=== PATIENT | male | born 1985 | race American Indian/Alaskan Native ===

== ENCOUNTER 2016-08-16 23:15 | Observation (INO) | payer MEDICAID ==
[2016-08-16] MEDS ORDERED: LORazepam 2 MG/ML Syringe IVPUSH ONE (23:20)
[2016-08-16] MEDS ORDERED: Sodium Chloride 0.9% 1,000 ML IV SCH (23:30)
--- NOTE | 2016-08-16 23:32 | EDM.PDOC ---
ED HPI GENERAL MEDICAL PROBLEM - General Chief Complaint: General Stated Complaint: AMB Time Seen by Provider: 08/16/16 23:21 Source of Information: Reports: Patient, EMS History Limitations: Reports: Altered mental status - History of Present Illness INITIAL COMMENTS - FREE TEXT/NARRATIVE: 30 yo [place] Male with altered mental status brought to ED by ambulance. Pt. very agitated but alert Onset: sudden Onset Date: 08/16/16 Onset Time: 18:00 Duration: Hour(s): Location: Reports: generalized Severity: moderate - Related Data Allergies Allergy/AdvReac Type Severity Reaction Status Date / Time No Known Allergies Allergy Verified 08/16/16 23:32 Home Meds: Home Meds . [No Known Home Meds] 08/16/16 [History] ED ROS GENERAL - Review of Systems Review Of Systems: See Below Constitutional: Reports: no symptoms HEENT: Reports: No symptoms Respiratory: Reports: no symptoms Cardiovascular: Reports: No symptoms Endocrine: Reports: no symptoms GI/Abdominal: Reports: No symptoms : Reports: no symptoms Musculoskeletal: Reports: no symptoms Skin: Reports: no symptoms Neurological: Reports: no symptoms Psychiatric: Reports: Agitation, Anxiety Hematologic/Lymphatic: Reports: no symptoms Immunologic: Reports: no symptoms ED EXAM, GENERAL - Physical Exam Exam: See Below Exam Limited By: No limitations General Appearance: alert, anxious Eye Exam: bilateral eye: PERRL Ears: normal external exam Nose: normal inspection Throat/Mouth: Normal inspection, Normal lips Head: atraumatic, normocephalic Neck: normal inspection, supple Respiratory/Chest: no respiratory distress, lungs clear Cardiovascular: normal peripheral pulses, regular rate, rhythm GI/Abdominal: normal bowel sounds, soft Back Exam: normal inspection, full range of motion Extremities: normal inspection, normal range of motion, non-tender Neurological: alert, oriented Psychiatric: anxious Skin Exam: Warm, Dry, Intact Lymphatic: no adenopathy Course - Vital Signs Last Recorded V/S: Last Vital Signs Temp 36.6 C 08/17/16 00:49 Pulse 110 H 08/17/16 00:49 Resp 26 H 08/17/16 00:49 BP 116/53 L 08/17/16 00:49 Pulse Ox 97 08/17/16 00:49 - Orders/Labs/Meds Orders: Active Orders 24 hr Category Date Time Status EKG Documentation Completion [RC] STAT Care 08/16/16 23:20 Active Sodium Chloride 0.9% [Normal Saline] 1,000 ml Med 08/16/16 23:30 Active IV ASDIRECTED Medication Orders Sodium Chloride (Normal Saline) 1,000 mls @ 150 mls/hr IV ASDIRECTED JIM Last Admin: 08/17/16 00:26 Dose: 150 mls/hr Labs: Laboratory Tests 08/16/16 08/16/16 08/16/16 Range/Units 23:33 23:33 23:33 WBC 17.3 H (5.0-10.0) 10^3/uL RBC 4.33 L (4.6-6.2) 10^6/uL Hgb 13.1 L (14.0-18.0) g/dL Hct 37.7 L (40.0-54.0) % MCV 87.1 (80-100) fL MCH 30.3 (27.0-34.0) pg MCHC 34.7 (33.0-35.0) g/dL Plt Count 270 (150-450) 10^3/uL Neut % (Auto) 63.6 (42.2-75.2) % Lymph % (Auto) 18.7 L (20.5-50.1) % [place] % (Auto) 13.9 H (2-8) % Eos % (Auto) 3.6 H (1.0-3.0) % Baso % (Auto) 0.2 (0.0-1.0) % Sodium 135 (135-145) mmol/L Potassium 4.0 (3.6-5.0) mmol/L Chloride 99 L (101-111) mmol/L Carbon Dioxide 24.0 (21.0-31.0) mmol/L Anion Gap 16.0 BUN 25 H (7-18) mg/dL Creatinine 1.2 (0.6-1.3) mg/dL Est Cr Clr Drug Dosing 74.69 mL/min Estimated GFR (MDRD) > 60 BUN/Creatinine Ratio 20.83 Glucose 62 L (74-105) mg/dL Calcium 9.0 (8.4-10.2) mg/dl Total Bilirubin 1.0 (0.2-1.0) mg/dL AST 91 H (10-42) IU/L ALT 63 H (10-60) IU/L Alkaline Phosphatase 74 (42-121) IU/L Troponin I < 0.02 (0.00-0.02) ng/ml Total Protein 7.3 (6.7-8.2) g/dl Albumin 4.3 (3.2-5.5) g/dl Globulin 3.0 Albumin/Globulin Ratio 1.43 Urine Opiates Screen (NEGATIVE) Ur Oxycodone Screen (NEGATIVE) Urine Methadone Screen (NEGATIVE) Ur Barbiturates Screen (NEGATIVE) U Tricyclic Antidepress (NEGATIVE) Ur Phencyclidine Scrn (NEGATIVE) Ur Amphetamine Screen (NEGATIVE) U Methamphetamines Scrn (NEGATIVE) Urine MDMA Screen (NEGATIVE) U Benzodiazepines Scrn (NEGATIVE) Urine Cocaine Screen (NEGATIVE) U Marijuana (THC) Screen (NEGATIVE) 08/17/16 Range/Units 00:20 WBC (5.0-10.0) 10^3/uL RBC (4.6-6.2) 10^6/uL Hgb (14.0-18.0) g/dL Hct (40.0-54.0) % MCV (80-100) fL MCH (27.0-34.0) pg MCHC (33.0-35.0) g/dL Plt Count (150-450) 10^3/uL Neut % (Auto) (42.2-75.2) % Lymph % (Auto) (20.5-50.1) % [place] % (Auto) (2-8) % Eos % (Auto) (1.0-3.0) % Baso % (Auto) (0.0-1.0) % Sodium (135-145) mmol/L Potassium (3.6-5.0) mmol/L Chloride (101-111) mmol/L Carbon Dioxide (21.0-31.0) mmol/L Anion Gap BUN (7-18) mg/dL Creatinine (0.6-1.3) mg/dL Est Cr Clr Drug Dosing mL/min Estimated GFR (MDRD) BUN/Creatinine Ratio Glucose (74-105) mg/dL Calcium (8.4-10.2) mg/dl Total Bilirubin (0.2-1.0) mg/dL AST (10-42) IU/L ALT (10-60) IU/L Alkaline Phosphatase (42-121) IU/L Troponin I (0.00-0.02) ng/ml Total Protein (6.7-8.2) g/dl Albumin (3.2-5.5) g/dl Globulin Albumin/Globulin Ratio Urine Opiates Screen Negative (NEGATIVE) Ur Oxycodone Screen Positive H (NEGATIVE) Urine Methadone Screen Negative (NEGATIVE) Ur Barbiturates Screen Negative (NEGATIVE) U Tricyclic Antidepress Negative (NEGATIVE) Ur Phencyclidine Scrn Negative (NEGATIVE) Ur Amphetamine Screen Positive H (NEGATIVE) U Methamphetamines Scrn Positive H (NEGATIVE) Urine MDMA Screen Negative (NEGATIVE) U Benzodiazepines Scrn Negative (NEGATIVE) Urine Cocaine Screen Negative (NEGATIVE) U Marijuana (THC) Screen Negative (NEGATIVE) Meds: Medications Generic Name Dose Route Start Last Admin Trade Name Freq PRN Reason Stop Dose Admin Sodium Chloride 1,000 mls @ 150 mls/hr 08/16/16 23:30 08/17/16 00:26 Normal Saline IV 150 mls/hr ASDIRECTED JIM Administration Discontinued Medications Generic Name Dose Route Start Last Admin Trade Name Freq PRN Reason Stop Dose Admin Haloperidol Lactate 5 mg 08/16/16 23:59 08/17/16 00:00 Haldol IM 08/17/16 00:00 5 mg ONETIME ONE Administration Lorazepam 2 mg 08/16/16 23:20 Ativan IVPUSH 08/16/16 23:21 ONETIME ONE Departure - Departure Time of Disposition: 00:52 Disposition: Admitted As Inpatient 65 Condition: fair Clinical Impression: Drug abuse, Agitation requiring sedation protocol - My Orders Last 24 Hours: My Active Orders 08/16/16 23:20 EKG Documentation Completion [RC] STAT 08/16/16 23:30 Sodium Chloride 0.9% [Normal Saline] 1,000 ml IV ASDIRECTED - Assessment/Plan Last 24 Hours: My Active Orders 08/16/16 23:20 EKG Documentation Completion [RC] STAT 08/16/16 23:30 Sodium Chloride 0.9% [Normal Saline] 1,000 ml IV ASDIRECTED
[2016-08-16 23:59] LABS: CHLORIDE,CL 99 mmol/L (101-111); SODIUM,NA 135 mmol/L (135-145)
[2016-08-16] MEDS ORDERED: Haloperidol Lactate 5 MG/ML SDV IM ONE (23:59)
[2016-08-17] MEDS ORDERED: LORazepam 2 MG/ML Syringe IM ONE (01:04)
--- NOTE | 2016-08-17 01:27 | PCM.HP ---
H&P History of Present Illness - General Date of Service: 08/17/16 Admit Problem/Dx: Drug over dose Source of Information: EMS notes reviewed, Other (ER Note) History Limitations: Reports: Altered mental status - History of Present Illness Initial Comments - Free Text/Narative: The pt was brought to ED by ambulance. In ED pt was agitated but alert. He was combative and given Haldol. He is sleepy now. Pt has no known significant past medical history. His Urine Tox screen was positive for Amphetamine, Methamphetamine and Oxycodone. He was admitted for observation as he can not be sent with under the present condition Onset of Symptoms: Reports: today - Related Data Allergies/Adverse Reactions: Allergies Allergy/AdvReac Type Severity Reaction Status Date / Time No Known Allergies Allergy Verified 08/16/16 23:32 Home Medications: Home Meds . [No Known Home Meds] 08/16/16 [History] Past Medical History - Past Health History Medical/Surgical History: Denies Medical/Surgical History Social & Family History - Tobacco Use Smoking Status *Q: Current Every Day Smoker Years of Tobacco use: 15 Packs/Tins Daily: 1 - Recreational Drug Use Recreational Drug Use: No H&P Review of Systems - Review of Systems: Review Of Systems: Unable To Obtain (Pt is sleeping after the Haldol) Exam - Exam Exam: See Below - Vital Signs Vital Signs: Last Vital Signs Temp 36.6 C 08/17/16 00:49 Pulse 110 H 08/17/16 00:49 Resp 26 H 08/17/16 00:49 BP 116/53 L 08/17/16 00:49 Pulse Ox 97 08/17/16 00:49 Weight: 79.379 kg - Exam Quality Assessment: No: supplemental oxygen, urinary catheter General: other (sleeping) HEENT: Conjunctiva clear Neck: supple. No: lymphadenopathy Lungs: Clear to auscultation, Normal respiratory effort Cardiovascular: regular rate, regular rhythm Abdomen: normal bowel sounds, soft (Male) Exam: Deferred Rectal (Males) Exam: Deferred Back Exam: normal inspection Extremities: normal inspection, normal pulses. No: edema Skin: warm, dry, intact Neurological: other (agitated) Neuro Extensive - Mental Status: other (sleepy) Neuro Extensive - Motor, Sensory, Reflexes: other (unable to perform) - Patient Data Result Diagrams: 08/16/16 23:33 08/16/16 23:33 *Q Meaningful Use (ADM) - VTE *Q VTE Criteria *Q: - Stroke *Q Stroke Criteria *Q: - AMI *Q AMI Criteria *Q: - Problem List (1) Agitation requiring sedation protocol SNOMED Code(s): 28634771 ICD Code: R45.1 - RESTLESSNESS AND AGITATION Status: Acute Current Visit : Yes (2) Drug abuse SNOMED Code(s): 42544959 ICD Code: F19.10 - OTHER PSYCHOACTIVE SUBSTANCE ABUSE, UNCOMPLICATED Status : Acute Current Visit: Yes Problem List Initiated/Reviewed/Updated: Yes Orders Last 24hrs: Medication Orders Sodium Chloride (Normal Saline) 1,000 mls @ 150 mls/hr IV ASDIRECTED JIM Last Admin: 08/17/16 00:26 Dose: 150 mls/hr Assessment/Plan Comment:: This is a 30 y/O M admitted for agitation with drug over dose with Methamphetamine 1. Drug Over dose: Pt was brought to ED by ambulance with drug over dose -Will continuw NS at 125 ml/hr -Will continue haldol PRN for agitation and lorazepam as needed ( for withdrawal symptom) -Do not have withdrawal symptom ( as per ED) -Closely monitor Vitals and observe for fall -Need drug rehab ( discuss in AM when awake and not agitated) 2. GI prophylaxis: start Protonix 3. DVT prophlaxis: use SCD 4. Code status: Continue Full Code until discussion is Made
[2016-08-17] MEDS ORDERED: Acetaminophen 325 MG Tab PO PRN (01:37)
[2016-08-17] MEDS ORDERED: Haloperidol 1 MG Tab PO PRN (01:42)
[2016-08-17] MEDS ORDERED: LORazepam 2 MG/ML Syringe IM PRN ×2 (01:47→02:00)
[2016-08-17] MEDS ORDERED: Sodium Chloride 0.9% 1,000 ML IV SCH (02:00)
[2016-08-17] MEDS ORDERED: LORazepam 2 MG/ML Syringe IVPUSH PRN (04:41)
[2016-08-17] MEDS ORDERED: Haloperidol Lactate 5 MG/ML SDV IM PRN (04:43)
[2016-08-17 10:12] LABS: CHLORIDE,CL 101 mmol/L (101-111); SODIUM,NA 135 mmol/L (135-145)
[2016-08-17] MEDS: Enoxaparin 40 MG/0.4 ML Syringe SUBCUT SCH (10:59)
[2016-08-17] MEDS ORDERED: 50% Dextrose in Water 50 ML Syringe IVPUSH ONE (11:21)
--- NOTE | 2016-08-17 11:31 | PCM.PN ---
- General Info Date of Service: 08/17/16 Subjective Update: pt given haldol 5 mg and ativan 2 mg in EOD. last received 2 mg ativan 0500 this am pt still agitated; becomes combative when try to arouse or with nursing cares. moving all extremities; spontaneously repositions self. pt will sit up briefly and establish eye contact. states he has pain "all over" then lays back down to sleep - Review of Systems Systems Review Comment:: unable to obtain from sedated /lethargic patient - Patient Data Vitals - most recent: Last Vital Signs Temp 36.6 C 08/17/16 11:00 Pulse 97 08/17/16 11:00 Resp 20 08/17/16 11:00 BP 118/58 L 08/17/16 11:00 Pulse Ox 99 08/17/16 11:00 Weight - most recent: 79.379 kg Lab Results last 24 hrs: Laboratory Results - last 24 hr 08/17/16 08/17/16 Range/Units 08:02 08:02 Sodium 135 (135-145) mmol/L Potassium 4.2 (3.6-5.0) mmol/L Chloride 101 (101-111) mmol/L Carbon Dioxide 23.0 (21.0-31.0) mmol/L Anion Gap 15.2 BUN 21 H (7-18) mg/dL Creatinine 0.9 (0.6-1.3) mg/dL Est Cr Clr Drug Dosing 99.58 mL/min Estimated GFR (MDRD) > 60 Glucose 65 L (74-105) mg/dL Calcium 8.4 (8.4-10.2) mg/dl Phosphorus 3.8 (2.5-4.6) mg/dL Magnesium 2.4 (1.8-2.5) mg/dL Med Orders - Current: Current Medications Acetaminophen (Tylenol) 650 mg PO Q4H PRN PRN Reason: Pain (mild 1-3 )/fever Dextrose/Water (Dextrose 50% In Water) 25 ml IVPUSH ONETIME ONE Stop: 08/17/16 11:22 Enoxaparin Sodium (Lovenox) 40 mg SUBCUT DAILY JIM Last Admin: 08/17/16 10:59 Dose: Not Given Haloperidol Lactate (Haldol) 1 mg IM Q6H PRN PRN Reason: Agitation Potassium Chloride/Dextrose/Sod Cl (D5 Ns With 20 Meq Kcl) 1,000 mls @ 125 mls/ hr IV ASDIRECTED JIM Lorazepam (Ativan) 2 mg IVPUSH Q6H PRN PRN Reason: Agitation Last Admin: 08/17/16 04:49 Dose: 2 mg Discontinued Medications Haloperidol (Haldol) 1 mg PO Q6H PRN PRN Reason: Agitation Haloperidol Lactate (Haldol) 5 mg IM ONETIME ONE Stop: 08/17/16 00:00 Last Admin: 08/17/16 00:00 Dose: 5 mg Sodium Chloride (Normal Saline) 1,000 mls @ 150 mls/hr IV ASDIRECTED JIM Last Infusion: 08/17/16 07:41 Dose: Infused Sodium Chloride (Normal Saline) 1,000 mls @ 125 mls/hr IV ASDIRECTED JIM Last Admin: 08/17/16 07:42 Dose: 125 mls/hr Lorazepam (Ativan) 2 mg IVPUSH ONETIME ONE Stop: 08/16/16 23:21 Last Admin: 08/17/16 01:05 Dose: Not Given Lorazepam (Ativan) 2 mg IM ONETIME ONE Stop: 08/17/16 01:05 Last Admin: 08/16/16 23:50 Dose: 2 mg Lorazepam (Ativan) 2 mg IM ASDIRECTED PRN PRN Reason: Agitation Lorazepam (Ativan) 2 mg IM Q6H PRN PRN Reason: Agitation - Exam General: sedated (restless/ agitated with stim - vocalizes with stim ) Lungs: Normal respiratory effort Cardiovascular: regular rhythm, tachycardia Abdomen: bowel sounds present, soft, no distension Extremities: no edema Peripheral Pulses: 2+: radial (L), radial (R) Skin: warm, ecchymosis (lower legs ) - Problem List & Annotations (1) Drug abuse SNOMED Code(s): 39643572 Code(s): F19.10 - OTHER PSYCHOACTIVE SUBSTANCE ABUSE, UNCOMPLICATED Status : Acute Current Visit: Yes - Problem List Review Problem List Initiated/Reviewed/Updated: Yes - My Orders Last 24 Hours: My Active Orders 08/17/16 11:21 Dextrose 50% in Water 25 ml IVPUSH ONETIME ONE 08/17/16 11:25 POC Glucose [Blood Glucose Check, Bedside] [RC] QIDACANDBED 08/17/16 11:30 Dextrose 5%-Normal Saline with KCl 20 mEq @ 125 mL/Hr (1000 mL) Dextrose 5%-0.9 % NaCl with KCl [D5 NS with 20 mEq KCl] 1,000 ml IV ASDIRECTED - Plan Plan:: This is a 30 y/O M admitted for agitation with drug over dose with Methamphetamine 1. Drug Over dose: Pt was brought to ED by ambulance with drug over dose -Will d/c NS at 125 ml/hr - change to D5NS with KCL -Will hold haldol PRN for agitation and cont PRN lorazepam as needed ( for withdrawal symptom) -d.w family regarding prossble treatment options 2. Low glucose -stil not eating- will give 1/2 amp d50 and start D5 NS -POC checks QID 3. elevated liver enzyems -suspect from the meth -recheck in am GI prophylaxis: con t Protonix . DVT prophlaxis: use SCD add lovenox - Code status: Continue Full Code until discussion is Made
[2016-08-17] MEDS ORDERED: Sodium Chloride 0.9% 10 ML Syringe FLUSH PRN (13:32)
[2016-08-17] MEDS: Dextrose 5%-0.9% NaCl with KCl 1,000 ML IV SCH (15:52)
[2016-08-18] MEDS: Dextrose 5%-0.9% NaCl with KCl 1,000 ML IV SCH ×2 (00:10→08:09)
[2016-08-18 06:33] LABS: CHLORIDE,CL 106 mmol/L (101-111); SODIUM,NA 137 mmol/L (135-145)
[2016-08-18 07:18] VITALS: BP 106/59
[2016-08-18] MEDS: Enoxaparin 40 MG/0.4 ML Syringe SUBCUT SCH (08:15)
--- NOTE | 2016-08-18 10:23 | PCM.DCSUM1 ---
Discharge Summary - Hospital Course HPI Initial Comments: The pt was brought to ED by ambulance. In ED pt was agitated but alert. He was combative and given Haldol. He is sleepy now. Pt has no known significant past medical history. His Urine Tox screen was positive for Amphetamine, Methamphetamine and Oxycodone. He was admitted for observation as he can not be sent with under the present condition - Discharge Data Discharge Date: 08/18/16 Discharge Disposition: Home, Self-Care 01 Condition: Good - Discharge Diagnosis/Problem(s) (1) Drug abuse SNOMED Code(s): 93913515 ICD Code: F19.10 - OTHER PSYCHOACTIVE SUBSTANCE ABUSE, UNCOMPLICATED Status : Acute Current Visit: Yes - Patient Summary/Data Hospital Course: 1. Drug Over dose with acute toxic encephalopathy - Pt was brought to ED by ambulance with drug over dose - UDS tested + for meth/ amphetatime/oxydocone -pt was VERY agitated required doses of haldol/ativan in EOD and repeat dose of ativan X1 once admitted to the floor during the first 12 hours, -pt then slept until evening when he did awaken and had appropriate interactions with family -pt is appropriate this am. declines referral for treatment of drug abuse; states he can quite "cold turkey" on his own. Has contact information if he changes his mind. 2. hypoglycemia -glucose dropped to mid 60s, resolved with 1/2 amp D50 and started on IV fluids with D5 -pt now eating independently 3. elevated liver enzyems -suspect from the meth -recheck shows they are trending down. pt d/c home with sister. - Patient Instructions Diet: Usual Diet as Tolerated Activity: As Tolerated Driving: Do Not Drive Showering/Bathing: May Shower Notify Provider of: Fever, Increased Pain, Nausea and/or Vomiting Other/Special Instructions: pt has declined referral to substance abuse treatment; but states he has contact information in the event he changes his mind - Discharge Plan Home Medications: Home Meds Acetaminophen [Tylenol] 650 mg PO Q4H PRN #0 tablet 08/18/16 [Rx] Patient Handouts: Drug Overdose, Finding Treatment for Addiction, Stimulant Use Disorder-Methamphetamines - General Info Date of Service: 08/18/16 Subjective Update: pt was a wake with family last evening; ate supper, up independently in room. had a good night; no further agitation or any need for ativan this am he has no complaints. declines drug treatment referral - states he will "take care of it" on his own. Functional Status: Reports: pain controlled, tolerating diet, ambulating, urinating - Review of Systems General: Reports: no symptoms HEENT: Reports: no symptoms Pulmonary: Reports: no symptoms Cardiovascular: Reports: no symptoms Gastrointestinal: Reports: No symptoms Genitourinary: Reports: no symptoms Musculoskeletal: Reports: no symptoms Skin: Reports: dryness Neurological: Reports: no symptoms - Patient Data Vitals - Most Recent: Last Vital Signs Temp 36.8 C 08/18/16 07:17 Pulse 70 08/18/16 07:17 Resp 17 08/18/16 07:17 BP 106/59 L 08/18/16 07:17 Pulse Ox 99 08/18/16 07:17 Weight - Most Recent: 79.379 kg I&O - Last 24 hours: Intake & Output 08/17/16 08/18/16 08/18/16 22:59 06:59 14:59 Intake Total 994 1587 Balance 994 1587 Lab Results - Last 24 hrs: Laboratory Results - last 24 hr 08/17/16 08/17/16 08/17/16 Range/Units 08:02 11:23 11:53 WBC (5.0-10.0) 10^3/uL RBC (4.6-6.2) 10^6/uL Hgb (14.0-18.0) g/dL Hct (40.0-54.0) % MCV (80-100) fL MCH (27.0-34.0) pg MCHC (33.0-35.0) g/dL Plt Count (150-450) 10^3/uL Sodium (135-145) mmol/L Potassium (3.6-5.0) mmol/L Chloride (101-111) mmol/L Carbon Dioxide (21.0-31.0) mmol/L Anion Gap BUN (7-18) mg/dL Creatinine (0.6-1.3) mg/dL Est Cr Clr Drug Dosing mL/min Estimated GFR (MDRD) BUN/Creatinine Ratio Glucose (74-105) mg/dL POC Glucose 59 L 124 H (70-105) mg/dl Calcium (8.4-10.2) mg/dl Phosphorus 3.8 (2.5-4.6) mg/dL Magnesium 2.4 (1.8-2.5) mg/dL Total Bilirubin (0.2-1.0) mg/dL AST (10-42) IU/L ALT (10-60) IU/L Alkaline Phosphatase (42-121) IU/L Total Protein (6.7-8.2) g/dl Albumin (3.2-5.5) g/dl Globulin Albumin/Globulin Ratio 08/17/16 08/17/16 08/18/16 Range/Units 17:20 20:58 06:00 WBC (5.0-10.0) 10^3/uL RBC (4.6-6.2) 10^6/uL Hgb (14.0-18.0) g/dL Hct (40.0-54.0) % MCV (80-100) fL MCH (27.0-34.0) pg MCHC (33.0-35.0) g/dL Plt Count (150-450) 10^3/uL Sodium 137 (135-145) mmol/L Potassium 3.8 (3.6-5.0) mmol/L Chloride 106 (101-111) mmol/L Carbon Dioxide 25.0 (21.0-31.0) mmol/L Anion Gap 9.8 BUN 10 (7-18) mg/dL Creatinine 0.6 (0.6-1.3) mg/dL Est Cr Clr Drug Dosing 149.37 mL/min Estimated GFR (MDRD) > 60 BUN/Creatinine Ratio 16.66 Glucose 114 H (74-105) mg/dL POC Glucose 144 H 110 H (70-105) mg/dl Calcium 8.0 L (8.4-10.2) mg/dl Phosphorus (2.5-4.6) mg/dL Magnesium (1.8-2.5) mg/dL Total Bilirubin 0.4 (0.2-1.0) mg/dL AST 63 H (10-42) IU/L ALT 52 (10-60) IU/L Alkaline Phosphatase 63 (42-121) IU/L Total Protein 6.3 L (6.7-8.2) g/dl Albumin 3.4 (3.2-5.5) g/dl Globulin 2.9 Albumin/Globulin Ratio 1.17 08/18/16 08/18/16 Range/Units 06:00 07:23 WBC 8.6 (5.0-10.0) 10^3/uL RBC 4.11 L (4.6-6.2) 10^6/uL Hgb 12.3 L (14.0-18.0) g/dL Hct 36.8 L (40.0-54.0) % MCV 89.5 (80-100) fL MCH 29.9 (27.0-34.0) pg MCHC 33.4 (33.0-35.0) g/dL Plt Count 238 (150-450) 10^3/uL Sodium (135-145) mmol/L Potassium (3.6-5.0) mmol/L Chloride (101-111) mmol/L Carbon Dioxide (21.0-31.0) mmol/L Anion Gap BUN (7-18) mg/dL Creatinine (0.6-1.3) mg/dL Est Cr Clr Drug Dosing mL/min Estimated GFR (MDRD) BUN/Creatinine Ratio Glucose (74-105) mg/dL POC Glucose 115 H (70-105) mg/dl Calcium (8.4-10.2) mg/dl Phosphorus (2.5-4.6) mg/dL Magnesium (1.8-2.5) mg/dL Total Bilirubin (0.2-1.0) mg/dL AST (10-42) IU/L ALT (10-60) IU/L Alkaline Phosphatase (42-121) IU/L Total Protein (6.7-8.2) g/dl Albumin (3.2-5.5) g/dl Globulin Albumin/Globulin Ratio Med Orders - Current: Current Medications Acetaminophen (Tylenol) 650 mg PO Q4H PRN PRN Reason: Pain (mild 1-3 )/fever Enoxaparin Sodium (Lovenox) 40 mg SUBCUT DAILY [facility] Last Admin: 08/18/16 08:15 Dose: 40 mg Potassium Chloride/Dextrose/Sod Cl (D5 Ns With 20 Meq Kcl) 1,000 mls @ 125 mls/ hr IV ASDIRECTED JIM Last Admin: 08/18/16 08:09 Dose: 125 mls/hr Lorazepam (Ativan) 2 mg IVPUSH Q6H PRN PRN Reason: Agitation Last Admin: 08/17/16 04:49 Dose: 2 mg Sodium Chloride (Saline Flush) 10 ml FLUSH ASDIRECTED PRN PRN Reason: Keep Vein Open Discontinued Medications Dextrose/Water (Dextrose 50% In Water) 25 ml IVPUSH ONETIME ONE Stop: 08/17/16 11:22 Last Admin: 08/17/16 11:37 Dose: 25 ml Haloperidol (Haldol) 1 mg PO Q6H PRN PRN Reason: Agitation Haloperidol Lactate (Haldol) 5 mg IM ONETIME ONE Stop: 08/17/16 00:00 Last Admin: 08/17/16 00:00 Dose: 5 mg Haloperidol Lactate (Haldol) 1 mg IM Q6H PRN PRN Reason: Agitation Sodium Chloride (Normal Saline) 1,000 mls @ 150 mls/hr IV ASDIRECTED JIM Last Infusion: 08/17/16 07:41 Dose: Infused Sodium Chloride (Normal Saline) 1,000 mls @ 125 mls/hr IV ASDIRECTED JIM Last Admin: 08/17/16 07:42 Dose: 125 mls/hr Lorazepam (Ativan) 2 mg IVPUSH ONETIME ONE Stop: 08/16/16 23:21 Last Admin: 08/17/16 01:05 Dose: Not Given Lorazepam (Ativan) 2 mg IM ONETIME ONE Stop: 08/17/16 01:05 Last Admin: 08/16/16 23:50 Dose: 2 mg Lorazepam (Ativan) 2 mg IM ASDIRECTED PRN PRN Reason: Agitation Lorazepam (Ativan) 2 mg IM Q6H PRN PRN Reason: Agitation - Exam General: Reports: alert, oriented, cooperative, no acute distress HEENT: Reports: Pupils equal Lungs: Reports: Clear to auscultation, Normal respiratory effort Cardiovascular: Reports: regular rate, regular rhythm Abdomen: Reports: bowel sounds present, soft, no tenderness Extremities: Reports: no edema Skin: Reports: warm Neurological: Reports: normal speech Psy/Mental Status: Reports: alert, normal affect, normal mood *Q Meaningful Use (DIS) - VTE *Q VTE Criteria *Q: - Stroke *Q Stroke Criteria *Q: - AMI *Q AMI Criteria *Q:
--- NOTE | 2016-09-07 08:42 | EKG ---
08/16/2016- JOHN ELLIOTT - This is a 12-lead EKG, it shows sinus tachycardia with ventricular rate 129beats per minute. Normal DE interval, premature ventricular beats, with nonspecific ST-T changes. Normal axis. Normal EKG. [facility] /[id number] MTDD
== END 2016-08-18 11:27 | disposition home or self-care (01) ==
LOC: DL.ED 23:15 → DL.MS 08-17 01:13 → UNDOADMOB 08-17 01:13 → DL.MS 08-17 01:37
PROVIDERS: ADMIT Internal Medicine Nephrology; ATTEND Internal Medicine Nephrology
DX: F19.10 Other psychoactive substance abuse, uncomplicated (principal); R45.1 Restlessness and agitation; F17.210 Nicotine dependence, cigarettes, uncomplicated; Z79.899 Other long term (current) drug therapy
CPT/HCPCS: 36415; 51701; 80048; 80053; 80305; 82962; 83735; 84100; 84484; 85025; 85027; 93005; 96361; 96372; 96374; 96375; 99285; G0378; J1630; J1650; J2060; J3480; J7030; J7060

== ENCOUNTER 2016-10-26 19:32 | Emergency (ER) | payer MEDICAID ==
[2016-10-26 19:58] VITALS: BP 114/71
--- NOTE | 2016-10-26 20:21 | EDM.PDOC ---
ED HPI GI/ABDOMINAL - General Chief Complaint: Abdominal Pain Stated Complaint: BY AMBULANCE Time Seen by Provider: 10/26/16 20:16 Source of Information: Reports: Patient History Limitations: Reports: No limitations - History of Present Illness INITIAL COMMENTS - FREE TEXT/NARRATIVE: This 30 yo male patient reports to the ED with right upper abdominal pain. The patient reports his pain started about 3 days ago, but has gotten much worse today. The patient reports he has not been able to eat today due to the pain. The patient reports his pain has been getting worse when he drinks soda. The patient has not been seen in the clinic and has not taken anything for temporary symptom relief. Symptom Onset Date: 10/23/16 Timing/Duration: Reports: Constant, Getting worse Location: RUQ Quality: Reports: ache, stabbing Severity: severe Improves with: Reports: lying down Worsens with: Reports: sitting up Associated Symptoms: Reports: loss of appetite - Related Data Allergies/ADRs: Allergies Allergy/AdvReac Type Severity Reaction Status Date / Time No Known Allergies Allergy Verified 10/26/16 19:53 Home Meds: Home Meds Acetaminophen [Tylenol] 650 mg PO Q4H PRN #0 tablet 08/18/16 [Rx] Past Medical History - Past Health History Medical/Surgical History: Denies Medical/Surgical History Psychiatric History: Reports: Addiction Social & Family History - Tobacco Use Smoking Status *Q: Current Some Day Smoker Years of Tobacco use: 16 Packs/Tins Daily: 0.1 - Caffeine Use Caffeine Use: Reports: Soda - Recreational Drug Use Recreational Drug Use: Yes Recreational Drug Type: Reports: Amphetamines (Speed), Methamphetamine, Oxycodone Recreational Drug Use Frequency: Socially ED ROS GENERAL - Review of Systems Review Of Systems: ROS reveals no pertinent complaints other than HPI. ED EXAM, GI/ABD - Physical Exam Exam: See Below Exam Limited By: Uncooperative General Appearance: alert, moderate distress Eyes: bilateral: normal appearance, EOMI Ears: normal external exam, normal canal, hearing grossly normal, normal TMs Nose: normal inspection, normal mucosa, no blood Throat/Mouth: Normal inspection, Normal lips, Normal teeth, Normal gums, Normal oropharynx, Normal voice, No airway compromise Head: atraumatic, normocephalic Neck: normal inspection, supple, non-tender, full range of motion Respiratory/Chest: no respiratory distress, lungs clear, normal breath sounds, no accessory muscle use, chest non-tender Cardiovascular: normal peripheral pulses, regular rate, rhythm, no edema, no gallop, no JVD, no murmur, no rub GI/Abdominal: normal bowel sounds, no organomegaly, no distention, no abnormal bruit, no mass, tenderness (RUQ), guarding (RUQ). No: psoas sign (Male) Exam: Deferred Rectal (Males) Exam: Deferred Back Exam: normal inspection, full range of motion, NT Extremities: normal inspection, normal range of motion, non-tender, normal capillary refill, no pedal edema Psychiatric: normal affect, normal mood Skin Exam: Warm, Dry, Intact, Normal color, No rash Lymphatic: no adenopathy Course - Vital Signs Last Recorded V/S: Last Vital Signs Temp 36.3 C 10/26/16 19:55 Pulse 62 10/26/16 19:55 Resp 20 10/26/16 19:55 BP 114/71 10/26/16 19:55 Pulse Ox 100 10/26/16 19:55 - Orders/Labs/Meds Orders: Active Orders 24 hr Category Date Time Status Abdomen Pelvis w Cont [CT] Urgent Exams 10/26/16 21:05 Ordered HYDROmorphone [Dilaudid] Med 10/26/16 22:08 Once 0.5 mg IVPUSH ONETIME ONE Labs: Laboratory Tests 10/26/16 10/26/16 10/26/16 Range/Units 19:48 19:48 19:48 WBC 17.9 H (5.0-10.0) 10^3/uL RBC 4.50 L (4.6-6.2) 10^6/uL Hgb 13.5 L (14.0-18.0) g/dL Hct 40.8 (40.0-54.0) % MCV 90.7 (80-100) fL MCH 30.0 (27.0-34.0) pg MCHC 33.1 (33.0-35.0) g/dL Plt Count 288 (150-450) 10^3/uL Neut % (Auto) 79.5 H (42.2-75.2) % Lymph % (Auto) 8.6 L (20.5-50.1) % [place] % (Auto) 11.6 H (2-8) % Eos % (Auto) 0.2 L (1.0-3.0) % Baso % (Auto) 0.1 (0.0-1.0) % Sodium 134 L (135-145) mmol/L Potassium 3.6 (3.6-5.0) mmol/L Chloride 100 L (101-111) mmol/L Carbon Dioxide 28.0 (21.0-31.0) mmol/L Anion Gap 9.6 BUN 10 (7-18) mg/dL Creatinine 0.8 (0.6-1.3) mg/dL Est Cr Clr Drug Dosing 112.03 mL/min Estimated GFR (MDRD) > 60 BUN/Creatinine Ratio 12.50 Glucose 111 H (74-105) mg/dL Calcium 9.2 (8.4-10.2) mg/dl Magnesium 2.1 (1.8-2.5) mg/dL Total Bilirubin 0.5 (0.2-1.0) mg/dL AST 24 (10-42) IU/L ALT 32 (10-60) IU/L Alkaline Phosphatase 91 (42-121) IU/L Ammonia 28 (11-35) umol/L Total Protein 7.8 (6.7-8.2) g/dl Albumin 4.1 (3.2-5.5) g/dl Globulin 3.7 Albumin/Globulin Ratio 1.11 Amylase 45 (28-100) U/L Lipase 22 (22-51) U/L Urine Color (YELLOW) Urine Appearance (CLEAR) Urine pH (5.0-9.0) Ur Specific [place] (1.005-1.030) Urine Protein (NEGATIVE) Urine Glucose (UA) (NEGATIVE) Urine Ketones (NEGATIVE) Urine Occult Blood (NEGATIVE) Urine Nitrite (NEGATIVE) Urine Bilirubin (NEGATIVE) Urine Urobilinogen (0.2-1.0) mg/dL Ur Leukocyte Esterase (NEGATIVE) Urine RBC /HPF Urine WBC (0-5/HPF) /HPF Ur Epithelial Cells /HPF Amorphous Sediment (0/HPF) /HPF Fine Granular Casts (0/LPF) /LPF Urine Mucus /LPF Urine Opiates Screen (NEGATIVE) Ur Oxycodone Screen (NEGATIVE) Urine Methadone Screen (NEGATIVE) Acetaminophen < 10 Ur Barbiturates Screen (NEGATIVE) U Tricyclic Antidepress (NEGATIVE) Ur Phencyclidine Scrn (NEGATIVE) Ur Amphetamine Screen (NEGATIVE) U Methamphetamines Scrn (NEGATIVE) Urine MDMA Screen (NEGATIVE) U Benzodiazepines Scrn (NEGATIVE) Urine Cocaine Screen (NEGATIVE) U Marijuana (THC) Screen (NEGATIVE) Ethyl Alcohol < 5 mg/dL 10/26/16 10/26/16 Range/Units 20:51 20:51 WBC (5.0-10.0) 10^3/uL RBC (4.6-6.2) 10^6/uL Hgb (14.0-18.0) g/dL Hct (40.0-54.0) % MCV (80-100) fL MCH (27.0-34.0) pg MCHC (33.0-35.0) g/dL Plt Count (150-450) 10^3/uL Neut % (Auto) (42.2-75.2) % Lymph % (Auto) (20.5-50.1) % [place] % (Auto) (2-8) % Eos % (Auto) (1.0-3.0) % Baso % (Auto) (0.0-1.0) % Sodium (135-145) mmol/L Potassium (3.6-5.0) mmol/L Chloride (101-111) mmol/L Carbon Dioxide (21.0-31.0) mmol/L Anion Gap BUN (7-18) mg/dL Creatinine (0.6-1.3) mg/dL Est Cr Clr Drug Dosing mL/min Estimated GFR (MDRD) BUN/Creatinine Ratio Glucose (74-105) mg/dL Calcium (8.4-10.2) mg/dl Magnesium (1.8-2.5) mg/dL Total Bilirubin (0.2-1.0) mg/dL AST (10-42) IU/L ALT (10-60) IU/L Alkaline Phosphatase (42-121) IU/L Ammonia (11-35) umol/L Total Protein (6.7-8.2) g/dl Albumin (3.2-5.5) g/dl Globulin Albumin/Globulin Ratio Amylase (28-100) U/L Lipase (22-51) U/L Urine Color Dark yellow (YELLOW) Urine Appearance Slightly cloudy (CLEAR) Urine pH 6.0 (5.0-9.0) Ur Specific [place] >= 1.030 (1.005-1.030) Urine Protein 30 H (NEGATIVE) Urine Glucose (UA) Negative (NEGATIVE) Urine Ketones Negative (NEGATIVE) Urine Occult Blood Negative (NEGATIVE) Urine Nitrite Negative (NEGATIVE) Urine Bilirubin Small H (NEGATIVE) Urine Urobilinogen 1.0 (0.2-1.0) mg/dL Ur Leukocyte Esterase Negative (NEGATIVE) Urine RBC 0-5 /HPF Urine WBC 0-5 (0-5/HPF) /HPF Ur Epithelial Cells Rare /HPF Amorphous Sediment Few (0/HPF) /HPF Fine Granular Casts Rare H (0/LPF) /LPF Urine Mucus Many H /LPF Urine Opiates Screen Negative (NEGATIVE) Ur Oxycodone Screen Negative (NEGATIVE) Urine Methadone Screen Negative (NEGATIVE) Acetaminophen Ur Barbiturates Screen Negative (NEGATIVE) U Tricyclic Antidepress Negative (NEGATIVE) Ur Phencyclidine Scrn Negative (NEGATIVE) Ur Amphetamine Screen Positive H (NEGATIVE) U Methamphetamines Scrn Positive H (NEGATIVE) Urine MDMA Screen Negative (NEGATIVE) U Benzodiazepines Scrn Negative (NEGATIVE) Urine Cocaine Screen Negative (NEGATIVE) U Marijuana (THC) Screen Negative (NEGATIVE) Ethyl Alcohol mg/dL Meds: Medications Discontinued Medications Generic Name Dose Route Start Last Admin Trade Name Freq PRN Reason Stop Dose Admin Hydromorphone HCl 0.5 mg 10/26/16 20:56 10/26/16 20:59 Dilaudid IVPUSH 10/26/16 20:57 0.5 mg ONETIME ONE Administration Sodium Chloride 1,000 mls @ 999 mls/hr 10/26/16 20:22 10/26/16 20:22 Normal Saline IV 10/26/16 21:22 999 mls/hr .BOLUS ONE Administration Iopamidol 75 ml 10/26/16 21:05 10/26/16 21:21 Isovue-300 (61%) IVPUSH 10/26/16 21:06 75 ml ONETIME ONE Administration Departure - Departure Time of Disposition: 22:08 Disposition: DC/Tfer to Acute Hospital 02 Condition: fair Clinical Impression: Cholecystitis Forms: Interfacility Transfer EMTALA Care Plan Goals: Discussed the history, examination, lab and CT results with Dr. Potts ( Hospitalist with [facility] in [place]). Dr. Potts accepted the patient for continued evaluation and management. The patient will be transported by [facility]. - My Orders Last 24 Hours: My Active Orders 10/26/16 21:05 Abdomen Pelvis w Cont [CT] Urgent 10/26/16 22:08 HYDROmorphone [Dilaudid] 0.5 mg IVPUSH ONETIME ONE - Assessment/Plan Last 24 Hours: My Active Orders 10/26/16 21:05 Abdomen Pelvis w Cont [CT] Urgent 10/26/16 22:08 HYDROmorphone [Dilaudid] 0.5 mg IVPUSH ONETIME ONE
[2016-10-26] MEDS ORDERED: Sodium Chloride 0.9% 1,000 ML IV ONE (20:22)
[2016-10-26 20:31] LABS: CHLORIDE,CL 100 mmol/L (101-111); SODIUM,NA 134 mmol/L (135-145)
[2016-10-26 20:33] LABS: ACETAMINOPHEN < 10
[2016-10-26] MEDS ORDERED: HYDROmorphone 1 MG/ML Syringe IVPUSH ONE ×2 (20:56→22:08)
[2016-10-26] MEDS ORDERED: Iopamidol 612 MG/ML 75 ML Bottle IVPUSH ONE (21:05)
== END 2016-10-26 22:50 ==
LOC: DL.ED 19:32
DX: K81.9 Cholecystitis, unspecified (principal); F17.200 Nicotine dependence, unspecified, uncomplicated
CPT/HCPCS: 36415; 74177; 80053; 80305; 81001; 82140; 82150; 83690; 83735; 85025; 96374; 99284; G0480; J1170; J7030; Q9967

== ENCOUNTER 2016-11-09 21:34 | Emergency (ER) | payer MEDICAID ==
[2016-11-09 21:40] VITALS: BP 120/68
[2016-11-09] MEDS ORDERED: Acetaminophen/HYDROcodone 325-10 MG Tab PO ONE (22:06)
[2016-11-09] MEDS ORDERED: Ondansetron 4 MG Tab.DIS PO ONE (22:06)
--- NOTE | 2016-11-09 22:09 | EDM.PDOC ---
{null, [id number]: DRAINAGE TUBE POSSIBLY CLOGGED? [id number] Time Seen by Provider: 11/09/16 21:36 Right Upper Abdominal Pain Score (Numeric/FACES): 5 - Related Data Allergies Allergy/AdvReac Type Severity Reaction Status Date / Time No Known Allergies Allergy Verified 11/09/16 21:40 Home Meds: Home Meds . [No Known Home Meds] 11/09/16 [History] Past Medical History - Past Health History Medical/Surgical History: Denies Medical/Surgical History Gastrointestinal History: Reports: Cholelithiasis Psychiatric History: Reports: Addiction - Past Surgical History GI Surgical History: Reports: Cholecystectomy Social & Family History - Tobacco Use Smoking Status *Q: Current Every Day Smoker Years of Tobacco use: 13 Packs/Tins Daily: 0.1 Second Hand Smoke Exposure: Yes - Caffeine Use Caffeine Use: Reports: Soda - Recreational Drug Use Recreational Drug Use: Yes Drug Use in Last 12 Months: Yes Recreational Drug Type: Reports: Methamphetamine Other Recreational Drug Type: last use 3 weeks ago Recreational Drug Use Frequency: Socially ED ROS GENERAL - Review of Systems Review Of Systems: ROS reveals no pertinent complaints other than HPI. ED EXAM, GI/ABD - Physical Exam Exam: See Below Exam Limited By: No Limitations General Appearance: Alert, WD/WN, No Apparent Distress Respiratory/Chest: No Respiratory Distress Cardiovascular: Regular Rate, Rhythm GI/Abdominal: Soft, Non-Tender, Other (drain tube without s/s cellulitis) Neurological: Alert, Oriented, Normal Cognition, Normal Gait, No Motor/Sensory Deficits Psychiatric: Normal Affect, Normal Mood Skin Exam: Warm, Dry Course - Vital Signs Last Recorded V/S: Last Vital Signs Temp 36.9 C 11/09/16 21:36 Pulse 97 11/09/16 21:36 Resp 18 11/09/16 21:36 BP 120/68 11/09/16 21:36 Pulse Ox 97 11/09/16 21:36 - Orders/Labs/Meds Meds: Medications Discontinued Medications Generic Name Dose Route Start Last Admin Trade Name Freq PRN Reason Stop Dose Admin Hydrocodone Bitart/Acetaminophen 1 tab 11/09/16 22:06 11/09/16 22:12 [place] 325-10 Mg PO 11/09/16 22:07 1 tab ONETIME ONE Administration Ondansetron HCl 4 mg 11/09/16 22:06 11/09/16 22:12 Zofran Odt PO 11/09/16 22:07 4 mg ONETIME ONE Administration Departure - Departure Time of Disposition: 22:14 Disposition: Home, Self-Care 01 Condition: good Clinical Impression: Servando bhatti drain site pain - Discharge Information Referrals: PCP,Unobtain [Primary Care Provider] - Forms: ED Department Discharge Additional Instructions: 1) call surgeon in the morning for re-schedule appointment }
--- NOTE | 2016-11-09 22:13 | EDM.PDOC ---
{null, <Adolfo Anand - Last Filed: 11/09/16 22:08> ED HPI GENERAL MEDICAL PROBLEM - General Chief Complaint: Abdominal Pain Stated Complaint: DRAINAGE TUBE POSSIBLY CLOGGED? [id number] Time Seen by Provider: 11/09/16 22:08 Source of Information: Reports: Patient History Limitations: Reports: No Limitations - History of Present Illness INITIAL COMMENTS - FREE TEXT/NARRATIVE: Patient states that he was scheduled to get his JOELLE drain removed last Wednesday but was unable to make it to the appointment because he could not get a ride. He does have history of cholecystectomy. Onset of pain was earlier today, he describes the pain as throbbing and consistent located in the area of his JOELLE drain around the tubing. No fevers, chills but does admit to nausea. He thought the drain was clogged but it is draining minimally now. He rates the pain as 4-5 /10. Due to the pain he came in for evaluation at the ER> Right Upper Abdominal Pain Score (Numeric/FACES): 5 - Related Data Allergies Allergy/AdvReac Type Severity Reaction Status Date / Time No Known Allergies Allergy Verified 11/09/16 21:40 Home Meds: Home Meds . [No Known Home Meds] 11/09/16 [History] Past Medical History - Past Health History Medical/Surgical History: Denies Medical/Surgical History Gastrointestinal History: Reports: Cholelithiasis Psychiatric History: Reports: Addiction - Past Surgical History GI Surgical History: Reports: Cholecystectomy Social & Family History - Tobacco Use Smoking Status *Q: Current Every Day Smoker Years of Tobacco use: 13 Packs/Tins Daily: 0.1 Second Hand Smoke Exposure: Yes - Caffeine Use Caffeine Use: Reports: Soda - Recreational Drug Use Recreational Drug Use: Yes Drug Use in Last 12 Months: Yes Recreational Drug Type: Reports: Methamphetamine Other Recreational Drug Type: last use 3 weeks ago Recreational Drug Use Frequency: Socially ED ROS GENERAL - Review of Systems Review Of Systems: See Below Constitutional: Reports: No Symptoms HEENT: Reports: No Symptoms Respiratory: Reports: No Symptoms Cardiovascular: Reports: No Symptoms Endocrine: Reports: No Symptoms GI/Abdominal: Reports: Abdominal Pain : Reports: No Symptoms Musculoskeletal: Reports: No Symptoms Skin: Reports: No Symptoms Neurological: Reports: No Symptoms Psychiatric: Reports: No Symptoms ED EXAM, GI/ABD - Physical Exam Exam: See Below Exam Limited By: No Limitations General Appearance: Alert, No Apparent Distress Eyes: Bilateral: Normal Appearance Ears: Normal External Exam Nose: Normal Inspection, Normal Mucosa, No Blood Throat/Mouth: Normal Inspection, Normal Lips, Normal Teeth, Normal Voice, No Airway Compromise Head: Atraumatic, Normocephalic Neck: Normal Inspection, Supple Respiratory/Chest: No Respiratory Distress, Lungs Clear, Normal Breath Sounds, No Accessory Muscle Use, Chest Non-Tender Cardiovascular: Normal Peripheral Pulses, Regular Rate, Rhythm, No Edema, No Murmur GI/Abdominal: Normal Bowel Sounds, Tenderness (right lower quadrant around JOELLE drain site. No signs of cellulitis or infection. ) Back Exam: Normal Inspection Extremities: Normal Inspection, Normal Range of Motion Neurological: Alert, Oriented, Normal Cognition Psychiatric: Normal Affect, Normal Mood Skin Exam: Warm, Dry, Intact Lymphatic: No Adenopathy Course - Vital Signs Text/Narrative:: Patient was given norco for pain control as well as Zofran for nausea. Last Recorded V/S: Last Vital Signs Temp 36.9 C 11/09/16 21:36 Pulse 97 11/09/16 21:36 Resp 18 11/09/16 21:36 BP 120/68 11/09/16 21:36 Pulse Ox 97 11/09/16 21:36 - Orders/Labs/Meds Meds: Medications Discontinued Medications Generic Name Dose Route Start Last Admin Trade Name Toma PRN Reason Stop Dose Admin Hydrocodone Bitart/Acetaminophen 1 tab 11/09/16 22:06 11/09/16 22:12 [place] 325-10 Mg PO 11/09/16 22:07 1 tab ONETIME ONE Administration Ondansetron HCl 4 mg 11/09/16 22:06 11/09/16 22:12 Zofran Odt PO 11/09/16 22:07 4 mg ONETIME ONE Administration Departure - Departure Disposition: Home, Self-Care 01 Clinical Impression: Servando bhatti drain site pain - Discharge Information Forms: ED Department Discharge Additional Instructions: 1) call surgeon in the morning for re-schedule appointment <Pankaj Weaver - Last Filed: 11/09/16 22:15> Departure - Departure Time of Disposition: 22:15 }
== END 2016-11-09 22:14 | disposition home or self-care (01) ==
LOC: DL.ED 21:34
DX: G89.18 Other acute postprocedural pain (principal); R10.11 Right upper quadrant pain; F17.210 Nicotine dependence, cigarettes, uncomplicated; Z90.49 Acquired absence of other specified parts of digestive tract
CPT/HCPCS: 99283; A9270

== ENCOUNTER 2021-09-10 21:22 | Emergency (ER) | payer MEDICAID ==
[2021-09-10 21:37] VITALS: BP 109/80; PULSE 96
[2021-09-10 22:28] LABS: ANION GAP 15.1 mEq/L (7-13); CHLORIDE,CL 105 mmol/L (98-107); SODIUM,NA 145 mmol/L (136-145)
[2021-09-11 03:18] LABS: AMPHETAMINES,URINE POSITIVE (NEGATIVE); BARBITURATES,URINE NEGATIVE (NEGATIVE); BENZODIAZEPINE,URINE NEGATIVE (NEGATIVE); MDMA (ECSTASY), URINE POSITIVE (NEGATIVE); METHADONE,URINE NEGATIVE (NEGATIVE); METHAMPHETAMINES,URINE POSITIVE (NEGATIVE); OPIATES,URINE NEGATIVE (NEGATIVE); OXYCODONE,URINE NEGATIVE (NEGATIVE); PHENCYCLIDINE,URINE NEGATIVE (NEGATIVE); TCA,URINE NEGATIVE (NEGATIVE)
== END 2021-09-10 23:30 | disposition home or self-care (01) ==
LOC: DL.ED 21:22
DX: F10.10 Alcohol abuse, uncomplicated (principal); F15.10 Other stimulant abuse, uncomplicated; Z72.0 Tobacco use; Z20.822 Contact with and (suspected) exposure to COVID-19
CPT/HCPCS: 36415; 80053; 80143; 80179; 80305-QW; 80307; 81003; 85025; 99283; 99284; U0002

== ENCOUNTER 2024-07-13 00:44 | Emergency (ER) | payer OTHER, MEDICAID ==
[~2024-07-13 00:44] MED LIST: Naloxone 2 MG/2 ML Syringe ONE
[2024-07-13] MEDS ORDERED: Sodium Chloride 0.9% 1,000 ML IV ONE (00:56)
[2024-07-13 01:10] LABS: HEMATOCRIT 44.6 % (40.0-54.0); HEMOGLOBIN 14.8 g/dL (14.0-18.0); MEAN CORPUSCULAR HEMOGLOBIN 29.9 pg (27.0-34.0); MEAN CORPUSCULAR HGB CONC 33.2 g/dL (33.0-35.0); MEAN CORPUSCULAR VOLUME 90.1 fL (80-100); PLATELET COUNT,PLT 282 10^3/uL (150-450); RED BLOOD CELL COUNT 4.95 10^6/uL (4.6-6.2); WHITE BLOOD CELL COUNT,WBC 10.9 10^3/uL (5.0-10.0)
[2024-07-13] MEDS ORDERED: Ketamine 500 mg/10 ML MDV IV ONE (01:20)
[2024-07-13 01:21] LABS: BASOPHILS PERCENT AUTO 0.3 % (0.0-1.0); EOSINOPHILS PERCENT AUTO 3.8 % (1.0-3.0); LYMPHOCYTES PERCENT AUTO 30.3 % (20.5-50.1); MONOCYTES PERCENT AUTO 10.7 % (2-8); NEUTROPHILS PERCENT AUTO 54.9 % (42.2-75.2)
[2024-07-13 01:34] LABS: ANION GAP 15.7 mEq/L (7-13); BLOOD UREA NITROGEN,BUN 17 mg/dL (7-18); CALCIUM 8.5 mg/dL (8.5-10.1); CARBON DIOXIDE,CO2 26 mmol/L (21-32); CHLORIDE,CL 103 mmol/L (98-107); CREATININE 0.76 mg/dL (0.70-1.30); GLUCOSE RANDOM 95 mg/dL (70-99); POTASSIUM,K 3.7 mmol/L (3.5-5.1); SODIUM,NA 141 mmol/L (136-145)
[2024-07-13 01:35] LABS: ESTIMATED GFR 117 mL/min (>=60); ETHANOL BLOOD MEDICAL 424 mg/dL (0)
[2024-07-13 02:01] LABS: AMPHETAMINES,URINE POSITIVE (NEGATIVE); BARBITURATES,URINE NEGATIVE (NEGATIVE); BENZODIAZEPINE,URINE NEGATIVE (NEGATIVE); MDMA (ECSTASY), URINE NEGATIVE (NEGATIVE); METHADONE,URINE NEGATIVE (NEGATIVE); METHAMPHETAMINES,URINE POSITIVE (NEGATIVE); OPIATES,URINE NEGATIVE (NEGATIVE); OXYCODONE,URINE NEGATIVE (NEGATIVE); PHENCYCLIDINE,URINE NEGATIVE (NEGATIVE); TCA,URINE NEGATIVE (NEGATIVE)
[2024-07-13 02:23] LABS: LYMPHOCYTES PERCENT MAN 34 % (20-50); MONOCYTES PERCENT MAN 9 % (2-8); SEG NEUTROPHILS PERCENT MAN 57 % (42-75)
== END 2024-07-13 02:55 | disposition home or self-care (01) ==
LOC: EDUNIT# → DL.ED 00:44
DX: F10.220 Alcohol dependence with intoxication, uncomplicated (principal); Y90.8 Blood alcohol level of 240 mg/100 ml or more; V47.5XXA Car driver injured in collision with fixed or stationary object in traffic accident, initial encounter; Y93.89 Activity, other specified
CPT/HCPCS: 36415; 70450; 71260; 72125; 74177; 80048; 80305-QW; 80307; 85025; 96374; 99284; 99285-25